=== PATIENT | male | born 1970 | race Caucasian/White ===

== ENCOUNTER 2019-11-23 13:49 | Emergency (ER) | payer OTHER ==
[~2019-11-23] VITALS: Ht 193 cm; Wt 90.5 kg
[2019-11-23] MEDS ORDERED: PANT40TA3 (14:09)
[2019-11-23] MEDS ORDERED: ALBU8.5H (14:09)
[2019-11-23] MEDS ORDERED: METF500T13 (14:09)
[2019-11-23] MEDS ORDERED: SERT-138 (14:09)
[2019-11-23] MEDS ORDERED: ATOR40TA75 (14:09)
[2019-11-23] MEDS ORDERED: RANO500T (14:09)
[2019-11-23] MEDS ORDERED: ASPI81TA26 (14:09)
[2019-11-23] MEDS ORDERED: CLON0.5T2 (14:09)
[2019-11-23] MEDS ORDERED: BUSP5TA (14:09)
[2019-11-23] MEDS ORDERED: BUDE10.2 (14:09)
[2019-11-23] MEDS ORDERED: METO1TAB87 (14:09)
[2019-11-23 14:52] LABS: BASO # 0.1 10^3/uL (0.0-0.2); BASO % 0.6 % (0.0-1.0); EOS # 0.2 10^3/uL (0.0-0.5); EOS % 1.9 % (0.0-3.0); HEMOGLOBIN 15.8 g/dl (13.5-17.5); LYMPH # 2.5 10^3/uL (1.5-5.0); LYMPH % 24.9 % (24.0-44.0); MEAN CORPUSCULAR HEMOGLOBIN 32.6 pg (27.0-33.0); MEAN CORPUSCULAR HGB CONC 34.3 g/dl (32.0-36.5); MEAN CORPUSCULAR VOLUME 94.8 fl (80.0-96.0); MONO # 0.9 10^3/uL (0.0-0.8); MONO % 8.5 % (0.0-5.0); NEUTROPHILS # 6.5 10^3/uL (1.5-8.5); NEUTROPHILS % 63.6 % (36.0-66.0); PLATELET COUNT, AUTOMATED 263 10^3/uL (150-450); RED BLOOD COUNT 4.85 10^6/uL (4.30-6.10); WHITE BLOOD COUNT 10.2 10^3/uL (4.0-10.0)
[2019-11-23 15:10] LABS: ALBUMIN 3.6 GM/DL (3.2-5.2); ALT/SGPT 22 U/L (12-78); BILIRUBIN,TOTAL 0.5 MG/DL (0.2-1.0); BLOOD UREA NITROGEN 17 MG/DL (7-18); CALCIUM LEVEL 8.9 MG/DL (8.5-10.1); CARBON DIOXIDE LEVEL 26 MEQ/L (21-32); CHLORIDE LEVEL 110 MEQ/L (98-107); CK-MB VALUE MASS 1.4 NG/ML (<3.6); CPK CREATINE PHOSPHOKINASE 200 U/L (39-308); CREATININE FOR GFR 0.83 MG/DL (0.70-1.30); GLOMERULAR FILTRATION RATE > 60.0 (>56); GLUCOSE, FASTING 101 MG/DL (70-100); POTASSIUM SERUM 3.9 MEQ/L (3.5-5.1); SODIUM LEVEL 144 MEQ/L (136-145); TOTAL PROTEIN 6.6 GM/DL (6.4-8.2); TROPONIN I < 0.02 NG/ML (< 0.10)
[2019-11-23 15:15] VITALS: BP 124/82
--- NOTE | 2019-11-24 21:21 | ECGEPIP ---
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
== END 2019-11-23 15:30 | disposition home or self-care (01) ==
LOC: EDBD 13:49 → M ED 13:49
DX: R55 Syncope and collapse (principal); I45.9 Conduction disorder, unspecified; I10 Essential (primary) hypertension; J44.9 Chronic obstructive pulmonary disease, unspecified; E78.5 Hyperlipidemia, unspecified; F17.200 Nicotine dependence, unspecified, uncomplicated; Z95.5 Presence of coronary angioplasty implant and graft; Z79.82 Long term (current) use of aspirin; Z79.899 Other long term (current) drug therapy; Z88.5 Allergy status to narcotic agent; Z91.030 Bee allergy status